=== PATIENT | female | born 1965 | race Caucasian/White ===

== ENCOUNTER 2020-09-10 20:48 | Emergency (ER) | payer OTHER ==
[2020-09-10 20:58] VITALS: TEMP 97.6; BMI 25.7
[2020-09-10] MEDS ORDERED: LACTATED RINGERS SOLUTION 1000 ML INFUS.BAG IV ONE (21:12)
[2020-09-10 22:35] LABS: EOS % 2.7 % (0-4.5); HEMATOCRIT 30.9 % (32.4-45.2); HEMOGLOBIN 10.1 GM/dL (10.7-15.3); LYMPH % 20.4 % (8-40); MCH 26.3 pg (25.7-33.7); MCHC 32.6 g/dl (32.0-36.0); MEAN CELL VOLUME 80.7 fl (80-96); MEAN PLT VOLUME 7.7 fl (7.5-11.1); MONO % 6.8 % (3.8-10.2); NEUT % 69.1 % (42.8-82.8); PLATELET COUNT 293 K/MM3 (134-434); RBC 3.83 M/mm3 (3.60-5.2); RDW 15.1 % (11.6-15.6); VENOUS BASE EXCESS 1.9 mmol/L (-2-2); VENOUS O2 SATURATION 59.5 % (70-80); VENOUS PCO2 51.7 mmHg (38-52); VENOUS PH 7.354 (7.310-7.410)
[2020-09-10 22:44] LABS: INR 0.93 (0.83-1.09); PROTHROMBIN TIME (PATIENT) 11.5 SEC (9.7-13.0)
[2020-09-10 22:47] LABS: ACTIVATED PTT 29.2 SECONDS (25.2-36.5)
[2020-09-10 22:52] LABS: CHLORIDE 101 mmol/L (98-107); SODIUM 136 mmol/L (136-145)
[2020-09-10 22:54] LABS: CALCIUM 9.4 mg/dL (8.5-10.1)
[2020-09-10] MEDS ORDERED: ACETAMINOPHEN 1000 MG/100 ML VIAL (NON FORMULARY) IVPB ONE (22:54)
[2020-09-10 22:55] LABS: ALBUMIN 2.7 g/dl (3.4-5.0); ANION GAP 4 MMOL/L (8-16); BLOOD UREA NITROGEN 36.6 mg/dL (7-18); CO2 31 mmol/L (21-32)
[2020-09-10 22:58] LABS: SGOT/AST 14 U/L (15-37); SGPT/ALT 19 U/L (13-61)
[2020-09-10 23:00] LABS: BILIRUBIN,TOTAL 0.2 mg/dL (0.2-1)
[2020-09-10 23:01] LABS: ALK PHOS 124 U/L (45-117)
[2020-09-10 23:08] LABS: GLUCOSE,RANDOM 406 mg/dL (74-106)
[2020-09-10] MEDS ORDERED: CLINDAMYCIN HCL 150 MG CAPSULE (FP) PO ONE (23:13)
[2020-09-10] MEDS ORDERED: INSULIN (NOVOLOG) ASPART 100 UNITS/ML 10ML VIAL SQ ONE (23:13)
[2020-09-10] MEDS ORDERED: ACETAMINOPHEN INJECTION 100 ML IVPB ONE (23:32)
[2020-09-10] MEDS ORDERED: CLINDAMYCIN HCL 150 MG CAPSULE (FP) ONE (23:32)
[2020-09-11 00:45] VITALS: BP 136/70; PULSE 80
== END 2020-09-11 00:47 | disposition home or self-care (01) ==
LOC: JER 20:48
PROC: 3E0333Z Introduction of Anti-inflammatory into Peripheral Vein, Percutaneous Approach (ICD-10-PCS; principal; 2020-09-10)
DX: S80.11XA Contusion of right lower leg, initial encounter (principal); M79.605 Pain in left leg; M79.604 Pain in right leg
CPT/HCPCS: 36415; 80053; 82010; 82803; 82962; 85025; 85610; 85730; 93970-TC; 99284-25; J0131

== ENCOUNTER 2022-01-04 21:37 | Inpatient (IN) | payer OTHER ==
[2022-01-05] MEDS ORDERED: ACETAMINOPHEN 1000 MG/100 ML BAG IVPB ONE (00:01)
[2022-01-05] MEDS ORDERED: ACETAMINOPHEN INJECTION 100 ML IVPB ONE (00:05)
[2022-01-05 00:12] LABS: BASO % 0.8 % (0-2.0); EOS % 2.8 % (0-4.5); HEMATOCRIT 32.7 % (32.4-45.2); HEMOGLOBIN 10.9 GM/dL (10.7-15.3); LYMPH % 22.6 % (8-40); MCHC 33.2 g/dl (32.0-36.0); MEAN CELL VOLUME 81.3 fl (80-96); MEAN PLT VOLUME 6.9 fl (7.5-11.1); MONO % 7.2 % (3.8-10.2); NEUT % 66.6 % (42.8-82.8); PLATELET COUNT 262 10^3/uL (134-434); RBC 4.03 M/mm3 (3.60-5.2); WHITE BLOOD COUNT 8.5 K/mm3 (4.0-10.0)
[2022-01-05] MEDS ORDERED: LABETALOL HCL 200 MG TABLET (FP) PO ONE (00:14)
[2022-01-05] MEDS ORDERED: LABETALOL HCL 100 MG TABLET (FP) ONE (00:35)
[2022-01-05 00:37] LABS: CALCIUM 8.9 mg/dL (8.5-10.1)
[2022-01-05 00:38] LABS: ALBUMIN 2.8 g/dl (3.4-5.0)
[2022-01-05 00:41] LABS: BILIRUBIN,TOTAL 0.2 mg/dL (0.2-1); CREATININE 3.3 mg/dL (0.55-1.3); TOT PROT 7.3 g/dl (6.4-8.2)
[2022-01-05 05:40] LABS: EPI CELLS 6 /uL (0-25.1); HYALINE CASTS 2 /uL (0-3.1); URINE APPEARANCE CLEAR; URINE BACTERIA 5 /uL (0-1359); URINE BILIRUBIN NEGATIVE (NEGATIVE); URINE COLOR YELLOW; URINE GLUCOSE (UA) NEGATIVE (NEGATIVE); URINE KETONE NEGATIVE (NEGATIVE); URINE LEUK ESTERASE NEGATIVE (NEGATIVE); URINE NITRITE NEGATIVE (NEGATIVE); URINE PROTEIN 4+ (NEGATIVE); URINE RBC 12 /uL (0-23.9); URINE UROBILINOGEN 0.2 mg/dL (0.2-1.0); URINE WBC 3 /uL (0-25.8)
[2022-01-05] MEDS ORDERED: NICARDIPINE 25 MG in DEXTROSE 5%-WATER - 240 ML IVPB SCH (06:00)
[2022-01-05] MEDS ORDERED: ACETAMINOPHEN 325 MG TABLET (FP) PO PRN (06:25)
[2022-01-05] MEDS ORDERED: ONDANSETRON 4 MG/2 ML VIAL IVPUSH PRN (06:26)
[2022-01-05] MEDS ORDERED: MELATONIN 5 MG TABLETS PO PRN (06:26)
[2022-01-05 06:27] LABS: PHENCYCLIDINE,URINE NEGATIVE (NEGATIVE); URINE BENZODIAZEPINES NEGATIVE (NEGATIVE)
[2022-01-05 06:28] LABS: COCAINE, UR NEGATIVE (NEGATIVE); METHADONE, UR NEGATIVE (NEGATIVE); OPIATES, URI NEGATIVE (NEGATIVE); URINE AMPHETAMINES NEGATIVE (NEGATIVE); URINE BARBITURATES NEGATIVE (NEGATIVE)
[2022-01-05] MEDS: INSULIN SLIDING SCALE (NOVOLOG) 1 VIAL SQ SCH ×4 (07:49→22:10)
[2022-01-05] MEDS: LABETALOL IN NACL, ISO-OSMOTIC 300 MG/300 ML BAG IV SCH ×3 (09:38→19:17)
[2022-01-05 12:05] VITALS: BMI 31.8
[2022-01-05 12:57] LABS: BASO % 0.6 % (0-2.0); EOS % 3.4 % (0-4.5); HEMATOCRIT 31.7 % (32.4-45.2); HEMOGLOBIN 10.5 GM/dL (10.7-15.3); MCHC 33.3 g/dl (32.0-36.0); MEAN CELL VOLUME 81.3 fl (80-96); MEAN PLT VOLUME 7.4 fl (7.5-11.1); PLATELET COUNT 251 10^3/uL (134-434); RBC 3.89 M/mm3 (3.60-5.2); RDW 15.1 % (11.6-15.6)
[2022-01-05 13:26] LABS: ALBUMIN 2.5 g/dl (3.4-5.0); BILIRUBIN,TOTAL 0.2 mg/dL (0.2-1); BLOOD UREA NITROGEN 42.1 mg/dL (7-18); CALCIUM 8.9 mg/dL (8.5-10.1); CREATININE 2.8 mg/dL (0.55-1.3); PHOSPHOROUS 4.2 mg/dL (2.5-4.9); TOT PROT 6.4 g/dl (6.4-8.2)
[2022-01-05] MEDS: HEPARIN NA (PORCINE) 5,000 UNITS/ML 1ML VIAL SQ SCH ×2 (13:51→22:00)
[2022-01-05] MEDS: LABETALOL HCL 100 MG TABLET (FP) PO SCH ×2 (13:51→22:15)
[2022-01-05] MEDS ORDERED: ATORVASTATIN CA 80 MG TABLET (FP) PO ONE (15:30)
[2022-01-05] MEDS ORDERED: traZODone HCL 50 MG TABLET (FP) PO ONE (21:11)
[2022-01-06] MEDS ORDERED: LABETALOL HCL 100 MG TABLET (FP) PO ONE (03:27)
[2022-01-06] MEDS: HEPARIN NA (PORCINE) 5,000 UNITS/ML 1ML VIAL SQ SCH ×2 (05:40→13:13)
[2022-01-06] MEDS: LABETALOL HCL 100 MG TABLET (FP) PO SCH ×2 (05:51→13:13)
[2022-01-06] MEDS: INSULIN SLIDING SCALE (NOVOLOG) 1 VIAL SQ SCH ×3 (06:54→17:28)
[2022-01-06 08:01] LABS: ALBUMIN 2.2 g/dl (3.4-5.0); BLOOD UREA NITROGEN 43.8 mg/dL (7-18); CALCIUM 8.5 mg/dL (8.5-10.1); MAGNESIUM 1.8 mg/dL (1.8-2.4)
[2022-01-06 08:03] LABS: BASO % 0.9 % (0-2.0); EOS % 3.2 % (0-4.5); HEMOGLOBIN 9.5 GM/dL (10.7-15.3); LYMPH % 25.2 % (8-40); MCH 26.8 pg (25.7-33.7); MCHC 32.6 g/dl (32.0-36.0); MEAN CELL VOLUME 82.2 fl (80-96); MEAN PLT VOLUME 7.6 fl (7.5-11.1); MONO % 6.6 % (3.8-10.2); NEUT % 64.1 % (42.8-82.8); PHOSPHOROUS 4.4 mg/dL (2.5-4.9); PLATELET COUNT 225 10^3/uL (134-434); RBC 3.53 M/mm3 (3.60-5.2); RDW 14.5 % (11.6-15.6); WHITE BLOOD COUNT 6.6 K/mm3 (4.0-10.0)
[2022-01-06 08:05] LABS: CREATININE 2.8 mg/dL (0.55-1.3); TOT PROT 5.7 g/dl (6.4-8.2)
[2022-01-06 08:07] LABS: BILIRUBIN,TOTAL 0.3 mg/dL (0.2-1)
[2022-01-06] MEDS: LABETALOL IN NACL, ISO-OSMOTIC 300 MG/300 ML BAG IV SCH (09:32)
[2022-01-06] MEDS ORDERED: CALCIUM GLUCONATE 10% - 1,000 MG/10 ML VIAL IVPUSH ONE (09:45)
[2022-01-06] MEDS ORDERED: DEXTROSE 50%-WATER 25 GM/50 ML DISP.SYRIN IVPUSH ONE (09:45)
[2022-01-06] MEDS ORDERED: INSULIN REGULAR HUMAN 100 UNITS/ML *VIAL IVPUSH ONE (09:45)
[2022-01-06] MEDS ORDERED: SODIUM ZIRCONIUM CYCLOSILICATE (LOKELMA) 5 GM PACKET PO SCH (10:00)
[2022-01-06] MEDS ORDERED: amLODIPine BESYLATE 5 MG TABLET (FP) PO SCH (13:15)
[2022-01-06] MEDS ORDERED: PHENAZOPYRIDINE HCL 100 MG TABLET (FP) PO ONE (13:49)
[2022-01-06 14:49] LABS: BLOOD UREA NITROGEN 40.6 mg/dL (7-18)
[2022-01-06 14:52] LABS: CREATININE 2.5 mg/dL (0.55-1.3)
[2022-01-06 16:04] VITALS: BP 149/74; PULSE 83; RESP 15; TEMP 98.1
[2022-01-06] MEDS ORDERED: ATORVASTATIN CA 80 MG TABLET (FP) PO SCH (22:00)
== END 2022-01-06 18:00 | disposition home or self-care (01) | DRG 199 ==
LOC: JER 21:37 → JERBED 01-05 01:54 → OBSVTOIN 01-05 06:08 → JICU 01-05 08:41
PROVIDERS: ADMIT Hospitalist; ATTEND Internal Medicine Pulmonary Disease
DX: I16.1 Hypertensive emergency (principal); N18.4 Chronic kidney disease, stage 4 (severe); I67.4 Hypertensive encephalopathy; N17.9 Acute kidney failure, unspecified; E11.9 Type 2 diabetes mellitus without complications; E66.9 Obesity, unspecified; Z68.31 Body mass index [BMI] 31.0-31.9, adult; F41.8 Other specified anxiety disorders; Z91.14 Patient's other noncompliance with medication regimen
CPT/HCPCS: 36415; 70450-TC; 71045-TC-FY; 76775-TC; 80048; 80053; 80061; 80307; 81003; 82570; 82962; 83036; 83735; 84100; 84300; 84439; 84443; 84484; 85025; 86850; 86900; 86901; 87086; 93005; 93010; 93306-TC; 97116-GP; 97162-GP; 99285-25; C9803-CS; G0378; J1644; U0003; U0005